=== PATIENT | female | born 1970 | race Caucasian/White ===

== ENCOUNTER 2022-08-11 09:50 | Day surgery (SDC) | payer BC, OTHER ==
[2022-08-06 15:02] VITALS: BMI 31.9
[2022-08-11 10:05] VITALS: RESP 16
[2022-08-11] MEDS ORDERED: PROPOFOL 20 ML ONE (10:35)
[2022-08-11 11:25] VITALS: TEMP 98
[2022-08-11 11:41] VITALS: PULSE 80
[2022-08-11 11:43] VITALS: BP 115/75
== END 2022-08-11 12:14 | disposition home or self-care (01) ==
LOC: FASU-ENDO 09:50
PROVIDERS: ATTEND Internal Medicine Gastroenterology
PROC: 0D5H8ZZ Destruction of Cecum, Via Natural or Artificial Opening Endoscopic (ICD-10-PCS; principal; 2022-08-11 10:49)
DX: Z12.11 Encounter for screening for malignant neoplasm of colon (principal); Z83.71 Family history of colonic polyps; K55.20 Angiodysplasia of colon without hemorrhage
CPT/HCPCS: 81025